=== PATIENT | female | born 2000 | race African-American/Black ===

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

== ENCOUNTER 2021-05-03 08:48 | Emergency (ER) | payer BC, OTHER ==
[~2021-05-03] VITALS: Ht 162.6 cm; Wt 77.1 kg
[~2021-05-03 08:48] MED LIST changes: +DOXYCYCLINE 10100 MG PO
[2021-05-03 09:03] LABS: URINE BILIRUBIN NEGATIVE (Negative); URINE BLOOD NEGATIVE (Negative); URINE CLARITY CLEAR; URINE COLOR YELLOW; URINE GLUCOSE-RANDOM* NEGATIVE (Negative); URINE KETONES NEGATIVE (Negative); URINE LEUKOCYTES-REFLEX NEGATIVE (Negative); URINE NITRITE-REFLEX NEGATIVE (Negative); URINE PROTEIN (DIPSTICK) NEGATIVE (Negative); URINE SPECIFIC GRAVITY 1.025 (1.005-1.035); URINE UROBILINOGEN 0.2 E.U./dl (0.2-1.0)
[2021-05-03 10:02] VITALS: BP 125/73
== END 2021-05-03 10:23 | disposition home or self-care (01) ==
LOC: ER 08:48
PROVIDERS: Emergency Medicine
DX: N89.8 Other specified noninflammatory disorders of vagina (principal); J45.909 Unspecified asthma, uncomplicated; Z98.890 Other specified postprocedural states; Z79.2 Long term (current) use of antibiotics

== ENCOUNTER 2021-06-19 04:11 | Emergency (ER) | payer BC, OTHER ==
[~2021-06-19] VITALS: Ht 162.6 cm; Wt 72.6 kg
[2021-06-19 05:11] VITALS: BP 130/70
== END 2021-06-19 05:12 | disposition home or self-care (01) ==
LOC: ER 04:11
DX: N76.0 Acute vaginitis (principal); J45.909 Unspecified asthma, uncomplicated

== ENCOUNTER 2021-07-25 16:02 | Emergency (ER) | payer BC, OTHER ==
[~2021-07-25] VITALS: Ht 162.6 cm; Wt 72.6 kg
[2021-07-25 17:14] LABS: URINE BILIRUBIN NEGATIVE (Negative); URINE BLOOD NEGATIVE (Negative); URINE CLARITY SL CLOUDY; URINE COLOR YELLOW; URINE GLUCOSE-RANDOM* NEGATIVE (Negative); URINE KETONES NEGATIVE (Negative); URINE LEUKOCYTES-REFLEX NEGATIVE (Negative); URINE NITRITE-REFLEX NEGATIVE (Negative); URINE PROTEIN (DIPSTICK) NEGATIVE (Negative); URINE UROBILINOGEN 0.2 E.U./dl (0.2-1.0)
[2021-07-25 17:26] LABS: SSA (PROTEIN CONFIRMATORY) NEGATIVE (Negative)
[2021-07-25 21:59] VITALS: BP 123/84
== END 2021-07-25 22:01 | disposition home or self-care (01) ==
LOC: ER 16:02
PROVIDERS: Physician Assistant
DX: J06.9 Acute upper respiratory infection, unspecified (principal); Z20.822 Contact with and (suspected) exposure to COVID-19; J45.909 Unspecified asthma, uncomplicated